=== PATIENT | male | born 1985 | race African-American/Black ===

== ENCOUNTER 2016-11-16 09:32 | Emergency (ER) | payer BC ==
[~2016-11-16] VITALS: Ht 170.2 cm; Wt 122.5 kg
[2016-11-16 09:44] VITALS: BP 207/130
--- NOTE | 2016-11-16 09:48 | NUR ---
Patient ambulated to bed 03.
--- NOTE | 2016-11-16 09:50 | NUR ---
PATIENT PRESENTS TO ED WITH C/O nose bleed x1 day; DENIES N/V/D; SKIN IS PINK/WARM/DRY; AAOX4 WITH EVEN AND STEADY GAIT; LUNGS CLEAR BL; HR EVEN AND REGULAR; PT DENIES ANY FEVER, CP, SOB, OR COUGH AT THIS TIME; PATIENT STATES PAIN OF 0/10 AT THIS TIME; VSS; PATIENT POSITIONED FOR COMFORT; HOB ELEVATED; BEDRAILS UP X2; BED DOWN. ER MD MADE AWARE OF PT STATUS.
--- NOTE | 2016-11-16 10:27 | NUR ---
Dr. Calderon evaluating patient at bedside.
--- NOTE | 2016-11-16 10:30 | NUR ---
AAO PT INSTRUCTED BY DR CUNHA TO HOLD PRESSURE ON NASAL BRIDGE, WILL CONTINUE TO MONITOR, PT HAS NO OTHER COMPLAINTS
--- NOTE | 2016-11-16 10:40 | NUR ---
MINIMAL BLEEDING OBSERVED, PT INSTRUCTED TO CONTINUE APPLYING PRESSURE ON NASAL BRIDGE, WILL CONTINUE TO MONITOR
--- NOTE | 2016-11-16 10:45 | NUR ---
EPITAXIS STOP, NO ACTIVE BLEEDING NOTED, DR CUNHA AT BEDSIDE
--- NOTE | 2016-11-16 10:51 | NUR ---
PT AMBULATES TO THE RESTROOM
[2016-11-16 11:02] VITALS: BP 158/101
--- NOTE | 2016-11-16 11:02 | NUR ---
Patient discharged with v/s stable. Written and verbal after care instructions given and explained. Patient verbalized understanding. Ambulatory with steady gait. All questions addressed prior to discharge. Advised to follow up with PMD.
== END 2016-11-16 11:02 | disposition home or self-care (01) ==
LOC: MED 09:32
DX: R04.0 Epistaxis (principal); I10 Essential (primary) hypertension
CPT/HCPCS: 99283

== ENCOUNTER 2016-11-30 01:36 | Emergency (ER) | payer BC ==
[~2016-11-30] VITALS: Ht 170.2 cm; Wt 122.5 kg
[2016-11-30 01:39] VITALS: BP 200/120
--- NOTE | 2016-11-30 01:46 | NUR ---
PT TAKEN TO BED 7
--- NOTE | 2016-11-30 01:51 | NUR ---
Dr. Ann evaluating patient at bedside.
[2016-11-30] MEDS ORDERED: ONDANSETRON 4 MG ODT PO ONE (01:55)
[2016-11-30] MEDS ORDERED: cloNIDine 0.1 MG TAB PO ONE (01:55)
--- NOTE | 2016-11-30 02:08 | NUR ---
31Y/M PATIENT PRESENTS TO ED WITH C/O SOB X 3 HR . PT STATES AFTER SMOKE [place], STARTED HAVING SOB AND HEADACHE . DENIES N/V/D; SKIN IS PINK/WARM/DRY; AAOX4 WITH EVEN AND STEADY GAIT; LUNGS CLEAR BL; HR EVEN AND REGULAR; PT DENIES ANY FEVER, CP, SOB, OR COUGH AT THIS TIME; PATIENT STATES PAIN OF 6/10 AT THIS TIME; VS, BP ELEVATED 220/150 P72; PATIENT POSITIONED FOR COMFORT; HOB ELEVATED; BEDRAILS UP X2; BED DOWN. ER MD MADE AWARE OF PT STATUS.
[2016-11-30 03:06] VITALS: BP 149/99
--- NOTE | 2016-11-30 03:07 | NUR ---
Patient discharged with v/s stable. Written and verbal after care instructions given and explained. Patient alert, oriented and verbalized understanding of instructions. Ambulatory with steady gait. All questions addressed prior to discharge. ID band removed. Patient advised to follow up with PMD. Rx of LINISOPRIL 10 MG given. Patient educated on indication of medication including possible reaction and side effects. Opportunity to ask questions provided and answered.
== END 2016-11-30 03:07 | disposition home or self-care (01) ==
LOC: MED 01:36
DX: I10 Essential (primary) hypertension (principal); R06.02 Shortness of breath; R42 Dizziness and giddiness; R07.89 Other chest pain
CPT/HCPCS: 93005; 99283; S0119

== ENCOUNTER 2016-12-01 03:35 | Emergency (ER) | payer BC ==
[~2016-12-01] VITALS: Ht 170.2 cm; Wt 119.3 kg
[2016-12-01 03:38] VITALS: BP 180/118
[2016-12-01] MEDS ORDERED: ASPIRIN 81 MG TAB.CHEW PO ONE (03:45)
[2016-12-01] MEDS ORDERED: NACL 0.9% 1,000 ML IV ONE (03:45)
[2016-12-01] MEDS ORDERED: cloNIDine 0.1 MG TAB PO ONE (03:45)
[2016-12-01] MEDS ORDERED: KETOROLAC 30 MG/ML VIAL IVP ONE (03:45)
--- NOTE | 2016-12-01 03:47 | NUR ---
Dr. Ann evaluating patient at triage
--- NOTE | 2016-12-01 03:52 | NUR ---
PT AMBUALTED TO BED 5
--- NOTE | 2016-12-01 04:00 | NUR ---
PATIENT PRESENTS TO ED WITH C/O CHEST PAIN THAT COMES AND GOES, PAIN 6/10, NUMBNESS TO RIGHT LOWER EXTREMITY SINCE YESTERDAY. TOOK AMLODIPINE AT HOME FOR HTN AT 4PM. DENIES N/V/D; SKIN IS PINK/WARM/DRY; AAOX4 WITH EVEN AND STEADY GAIT; LUNGS CLEAR BL; HR EVEN AND REGULAR; PT DENIES ANY FEVER, SOB, OR COUGH AT THIS TIME; PATIENT STATES PAIN OF 5/10 AT THIS TIME; VSS; PATIENT POSITIONED FOR COMFORT; HOB ELEVATED; BEDRAILS UP X2; BED DOWN. ER MD MADE AWARE OF PT STATUS.
--- NOTE | 2016-12-01 04:45 | NUR ---
X-Ray at bedside.
--- NOTE | 2016-12-01 04:56 | NUR ---
PT IS RESTING COMFORTABLY AT THIS TIME.
[2016-12-01 05:52] VITALS: BP 124/99
== END 2016-12-01 05:50 | disposition home or self-care (01) ==
LOC: MED 03:35
DX: R07.89 Other chest pain (principal); M54.31 Sciatica, right side; I10 Essential (primary) hypertension
CPT/HCPCS: 36415; 71010; 80053; 80305; 84484; 85025; 85610; 85730; 93005; 96361; 96374; 99285; J1885; J7030; Q0092

== ENCOUNTER 2016-12-04 02:30 | Emergency (ER) | payer BC ==
[~2016-12-04] VITALS: Ht 170.2 cm; Wt 119.3 kg
[2016-12-04 02:38] VITALS: BP 155/100
--- NOTE | 2016-12-04 04:08 | NUR ---
PATIENT LEFT WITHOUT BEING SEEN BY DR. CHAVEZ. NO FURTHER CARE PROVIDED FOR PATIENT.
== END 2016-12-04 04:08 | disposition left against medical advice (07) ==
LOC: MED 02:30
DX: R42 Dizziness and giddiness (principal); Z53.21 Procedure and treatment not carried out due to patient leaving prior to being seen by health care provider